=== PATIENT | male | born 1990 | race Caucasian/White ===

== ENCOUNTER 2022-02-03 12:56 | Emergency (ER) | payer SELFPAY ==
[~2022-02-03] VITALS: Ht 172.7 cm; Wt 76.4 kg
[2022-02-03 13:02] VITALS: BP 132/72
[2022-02-03] MEDS ORDERED: HYDR-3831 PO (13:55)
== END 2022-02-03 14:19 | disposition home or self-care (01) ==
LOC: EMS 12:56
DX: H93.13 Tinnitus, bilateral (principal)
CPT/HCPCS: 99283; Z7502